=== PATIENT | female | born 1970 | race Caucasian/White ===

== ENCOUNTER 2018-05-18 06:58 | Day surgery (SDC) | payer MEDICAID ==
[2018-05-15 07:50] VITALS: BMI 26.6
[2018-05-18 07:21] VITALS: RESP 16; TEMP 98
[2018-05-18] MEDS ORDERED: Propofol 10 mg/ml Inj (20 ML) ONE (08:14)
[2018-05-18] MEDS ORDERED: Sodium Chloride 0.9% 1,000 ML IV SCH (09:00)
[2018-05-18 10:14] VITALS: O2SAT 98
[2018-05-18 10:51] VITALS: BP 128/77; PULSE 74
== END 2018-05-18 10:25 | disposition home or self-care (01) ==
LOC: ENDO 06:58
PROVIDERS: ATTEND Internal Medicine Gastroenterology
DX: Z12.11 Encounter for screening for malignant neoplasm of colon (principal); K57.30 Diverticulosis of large intestine without perforation or abscess without bleeding; K64.0 First degree hemorrhoids; D50.9 Iron deficiency anemia, unspecified; K44.9 Diaphragmatic hernia without obstruction or gangrene; E78.5 Hyperlipidemia, unspecified; E55.9 Vitamin D deficiency, unspecified; E53.8 Deficiency of other specified B group vitamins; K21.9 Gastro-esophageal reflux disease without esophagitis; E11.43 Type 2 diabetes mellitus with diabetic autonomic (poly)neuropathy; K31.84 Gastroparesis; K29.50 Unspecified chronic gastritis without bleeding; B96.81 Helicobacter pylori [H. pylori] as the cause of diseases classified elsewhere; J30.9 Allergic rhinitis, unspecified; I10 Essential (primary) hypertension; M94.0 Chondrocostal junction syndrome [Tietze]; M51.27 Other intervertebral disc displacement, lumbosacral region; R42 Dizziness and giddiness; R20.2 Paresthesia of skin; R53.82 Chronic fatigue, unspecified; R06.00 Dyspnea, unspecified

== ENCOUNTER 2018-11-04 09:33 | Outpatient (CLI) | payer MEDICAID | END 2018-11-04 09:34 | disposition home or self-care (01) | LOC: RAD 09:33 ==

== ENCOUNTER 2018-12-29 09:20 | Outpatient (CLI) | payer MEDICAID | END 2018-12-29 09:21 | disposition home or self-care (01) | LOC: RAD 09:20 | DX: E83.52 Hypercalcemia (principal); K76.0 Fatty (change of) liver, not elsewhere classified ==